=== PATIENT | female | born 1950 | race Caucasian/White ===

== ENCOUNTER 2021-03-29 21:03 | Inpatient (IN) ==
[2021-03-30] MEDS ORDERED: *HR* OxyCODONE/APAP 10/325 TABLET PO PRN (20:59)
[2021-03-30] MEDS ORDERED: Melatonin 3 MG TABLET PO PRN (20:59)
[2021-03-30] MEDS: Aspirin Enteric Coated 81 MG Tablet PO SCH (23:05)
[2021-03-30] MEDS: levETIRAcetam 250 MG TABLET PO SCH (23:06)
[2021-03-30] MEDS: *HR* OxyCODONE Immed Rel 15 MG TABLET PO PRN (23:07)
[2021-03-30] MEDS: Sennosides/Docusate Sodium TABLET PO SCH (23:07)
[2021-03-31] MEDS: *HR* Enoxaparin 40 MG/0.4 ML SYRINGE SQ SCH (01:30)
[2021-03-31] MEDS: *HR* OxyCODONE Immed Rel 15 MG TABLET PO PRN ×3 (03:16→13:42)
[2021-03-31 05:22] LABS: Basophils % 0.2 %; Eosinophils % 0.2 %; Hematocrit 30.5 % (35.3-44.9); Hemoglobin 10.1 g/dL (11.5-15.4); Immature Granulocytes % 0.8 % (0-4); Lymphocytes # 0.6 K/mcL (0.6-4.6); Mean Corpuscular HGB Conc 33.1 g/dL (31.6-35.5); Mean Corpuscular Hemoglobin 30.4 pg (28.0-33.3); Mean Corpuscular Volume 91.9 fL (83.0-100.0); Mean Platelet Volume 10.3 fL (9.4-12.4); Monocytes # 0.6 K/mcL (0.0-1.3); Monocytes % 9.2 %; Neutrophils # 4.8 K/mcL (1.6-8.9); Platelet Count 140 K/mcL (140-400); Red Blood Count 3.32 M/mcL (3.82-4.97); Red Cell Distribution Width 13.4 % (11.5-14.5); Segmented Neutrophils % 79.6 %
[2021-03-31 05:45] LABS: BUN/Creatinine Ratio 25 (6-26); Blood Urea Nitrogen 14 mg/dL (8-23); Calcium 8.3 mg/dL (8.6-10.3); Carbon Dioxide 30 mEq/L (23-29); Chloride 108 mEq/L (98-107); Glucose 113 mg/dL (70-105); Osmolality,Calculated 297 (280-300); Potassium 3.4 mEq/L (3.5-5.1); Sodium 143 mEq/L (136-145); eGFR For African Americans > 60 (> 60); eGFR For Non-African Americans > 60 (> 60)
[2021-03-31] MEDS: Aspirin Enteric Coated 81 MG Tablet PO SCH ×2 (09:20→21:31)
[2021-03-31] MEDS: Sennosides/Docusate Sodium TABLET PO SCH ×2 (09:20→21:30)
[2021-03-31] MEDS: Multivit/Ca/Min/Fe/FA 1 TAB TABLET PO SCH (09:20)
[2021-03-31] MEDS: levETIRAcetam 250 MG TABLET PO SCH ×2 (09:21→21:30)
[2021-04-01] MEDS: *HR* Enoxaparin 40 MG/0.4 ML SYRINGE SQ SCH (06:40)
[2021-04-01] MEDS: Multivit/Ca/Min/Fe/FA 1 TAB TABLET PO SCH (08:09)
[2021-04-01] MEDS: *HR* OxyCODONE/APAP 5/325 TABLET PO PRN (08:09)
[2021-04-01] MEDS: Sennosides/Docusate Sodium TABLET PO SCH ×2 (08:09→19:54)
[2021-04-01] MEDS: levETIRAcetam 250 MG TABLET PO SCH ×2 (08:09→19:55)
[2021-04-01] MEDS: Aspirin Enteric Coated 81 MG Tablet PO SCH ×2 (08:09→19:54)
[2021-04-01] MEDS: *HR* OxyCODONE/APAP 10/325 TABLET PO PRN ×2 (14:31→20:47)
[2021-04-02] MEDS: *HR* Enoxaparin 40 MG/0.4 ML SYRINGE SQ SCH (05:43)
[2021-04-02] MEDS: levETIRAcetam 250 MG TABLET PO SCH ×2 (07:39→20:22)
[2021-04-02] MEDS: Multivit/Ca/Min/Fe/FA 1 TAB TABLET PO SCH (07:39)
[2021-04-02] MEDS: Sennosides/Docusate Sodium TABLET PO SCH ×2 (07:39→20:23)
[2021-04-02] MEDS: Aspirin Enteric Coated 81 MG Tablet PO SCH ×2 (07:39→20:23)
[2021-04-02] MEDS: *HR* OxyCODONE/APAP 5/325 TABLET PO PRN (07:44)
[2021-04-02] MEDS: *HR* OxyCODONE/APAP 10/325 TABLET PO PRN ×2 (12:01→20:21)
[2021-04-03] MEDS: *HR* OxyCODONE/APAP 10/325 TABLET PO PRN ×3 (04:11→18:18)
[2021-04-03] MEDS: *HR* Enoxaparin 40 MG/0.4 ML SYRINGE SQ SCH (05:20)
[2021-04-03 05:21] LABS: Basophils % 0.1 %; Eosinophils # 0.1 K/mcL (0.0-0.6); Eosinophils % 1.5 %; Hematocrit 30.8 % (35.3-44.9); Immature Granulocytes % 1.5 % (0-4); Lymphocytes # 0.7 K/mcL (0.6-4.6); Lymphocytes % 10.2 %; Mean Corpuscular HGB Conc 32.5 g/dL (31.6-35.5); Mean Corpuscular Hemoglobin 30.2 pg (28.0-33.3); Mean Corpuscular Volume 93.1 fL (83.0-100.0); Mean Platelet Volume 9.9 fL (9.4-12.4); Monocytes # 0.7 K/mcL (0.0-1.3); Monocytes % 9.2 %; Neutrophils # 5.7 K/mcL (1.6-8.9); Nucleated Red Blood Cells 0.3 /100 WBC (0); Platelet Count 169 K/mcL (140-400); Red Blood Count 3.31 M/mcL (3.82-4.97); Red Cell Distribution Width 14.3 % (11.5-14.5); Segmented Neutrophils % 77.5 %; White Blood Count 7.3 K/mcL (4.3-11.1)
[2021-04-03 05:33] LABS: BUN/Creatinine Ratio 18 (6-26); Blood Urea Nitrogen 8 mg/dL (8-23); Calcium 7.7 mg/dL (8.6-10.3); Carbon Dioxide 27 mEq/L (23-29); Chloride 111 mEq/L (98-107); Glucose 111 mg/dL (70-105); Osmolality,Calculated 293 (280-300); Potassium 3.6 mEq/L (3.5-5.1); Sodium 142 mEq/L (136-145); eGFR For African Americans > 60 (> 60); eGFR For Non-African Americans > 60 (> 60)
[2021-04-03] MEDS: levETIRAcetam 250 MG TABLET PO SCH ×2 (08:10→21:08)
[2021-04-03] MEDS: Multivit/Ca/Min/Fe/FA 1 TAB TABLET PO SCH (08:10)
[2021-04-03] MEDS: Aspirin Enteric Coated 81 MG Tablet PO SCH ×2 (08:10→21:09)
[2021-04-03] MEDS: Sennosides/Docusate Sodium TABLET PO SCH ×2 (08:10→21:08)
[2021-04-04] MEDS: *HR* OxyCODONE/APAP 10/325 TABLET PO PRN ×3 (01:41→21:26)
[2021-04-04] MEDS: *HR* Enoxaparin 40 MG/0.4 ML SYRINGE SQ SCH (05:16)
[2021-04-04] MEDS: Multivit/Ca/Min/Fe/FA 1 TAB TABLET PO SCH (08:28)
[2021-04-04] MEDS: levETIRAcetam 250 MG TABLET PO SCH ×2 (08:28→21:26)
[2021-04-04] MEDS: Sennosides/Docusate Sodium TABLET PO SCH ×2 (08:28→21:28)
[2021-04-04] MEDS: Aspirin Enteric Coated 81 MG Tablet PO SCH ×2 (08:28→21:27)
[2021-04-05] MEDS: *HR* Enoxaparin 40 MG/0.4 ML SYRINGE SQ SCH ×2 (00:44→22:22)
[2021-04-05] MEDS: *HR* OxyCODONE/APAP 10/325 TABLET PO PRN ×2 (03:21→17:52)
[2021-04-05 05:07] LABS: Basophils % 0.3 %; Eosinophils # 0.1 K/mcL (0.0-0.6); Eosinophils % 1.8 %; Hematocrit 32.5 % (35.3-44.9); Hemoglobin 10.4 g/dL (11.5-15.4); Immature Granulocytes % 1.5 % (0-4); Lymphocytes # 0.9 K/mcL (0.6-4.6); Lymphocytes % 11.7 %; Mean Corpuscular Hemoglobin 30.2 pg (28.0-33.3); Mean Corpuscular Volume 94.5 fL (83.0-100.0); Mean Platelet Volume 9.8 fL (9.4-12.4); Monocytes # 0.7 K/mcL (0.0-1.3); Monocytes % 9.2 %; Neutrophils # 5.5 K/mcL (1.6-8.9); Platelet Count 177 K/mcL (140-400); Red Blood Count 3.44 M/mcL (3.82-4.97); Red Cell Distribution Width 14.9 % (11.5-14.5); Segmented Neutrophils % 75.5 %; White Blood Count 7.3 K/mcL (4.3-11.1)
[2021-04-05 05:20] LABS: BUN/Creatinine Ratio 12 (6-26); Blood Urea Nitrogen 6 mg/dL (8-23); Calcium 7.9 mg/dL (8.6-10.3); Carbon Dioxide 28 mEq/L (23-29); Chloride 110 mEq/L (98-107); Glucose 121 mg/dL (70-105); Osmolality,Calculated 291 (280-300); Potassium 3.7 mEq/L (3.5-5.1); Sodium 141 mEq/L (136-145); eGFR For African Americans > 60 (> 60); eGFR For Non-African Americans > 60 (> 60)
[2021-04-05] MEDS: Sennosides/Docusate Sodium TABLET PO SCH ×2 (08:24→20:07)
[2021-04-05] MEDS: Multivit/Ca/Min/Fe/FA 1 TAB TABLET PO SCH (08:24)
[2021-04-05] MEDS: levETIRAcetam 250 MG TABLET PO SCH ×2 (08:24→20:09)
[2021-04-05] MEDS: Aspirin Enteric Coated 81 MG Tablet PO SCH ×2 (08:25→20:09)
[2021-04-05 22:44] VITALS: O2SAT 95
[2021-04-06] MEDS: *HR* OxyCODONE/APAP 10/325 TABLET PO PRN ×2 (03:52→14:23)
[2021-04-06 07:19] VITALS: BP 156/98; PULSE 82; RESP 19; TEMP 97.3
[2021-04-06] MEDS: levETIRAcetam 250 MG TABLET PO SCH (08:16)
[2021-04-06] MEDS: Multivit/Ca/Min/Fe/FA 1 TAB TABLET PO SCH (08:17)
[2021-04-06] MEDS: Aspirin Enteric Coated 81 MG Tablet PO SCH (08:17)
[2021-04-06] MEDS: Sennosides/Docusate Sodium TABLET PO SCH (08:17)
== END 2021-04-06 14:50 | disposition home health service (06) | DRG 560 ==
LOC: INPGRE 03-30 20:42
PROVIDERS: ADMIT Family Medicine; ATTEND Family Medicine